=== PATIENT | female | born 1935 | race Caucasian/White ===

== ENCOUNTER 2021-12-19 11:56 | Observation (INO) | payer MEDICARE ==
[~2021-12-19] VITALS: Ht 142.2 cm; Wt 70.3 kg
[~2021-12-19 11:56] MED LIST: ASPIRIN EC81 MG PO; ATORVASTATIN CA20 MG PO; GLIPIZIDE5 MG PO; ISOSORBIDE MONO30 MG PO; LEVOTHYROXINE25 MCG PO; LOPRESSOR25 MG PO; METFORMIN HCL500 MG PO; PEPCID20 MG PO; PLAVIX75 MG PO; VITAMIN D250000 UNIT PO
[2021-12-19 13:03] LABS: BASOPHILS # (AUTO) 0.1 (0.0-0.1); BASOPHILS % 0.8 % (0.0-1.0); EOSINOPHILS # (AUTO) 0.6 (0.0-0.4); EOSINOPHILS % 6.4 % (0.0-6.0); HEMATOCRIT 45.4 % (34.2-44.1); HEMOGLOBIN 14.7 g/dL (12.0-16.0); LYMPHOCYTES # (AUTO) 3.1 (1.0-3.2); LYMPHOCYTES % 34.6 % (18.0-39.1); MEAN CORPUSCULAR HEMOGLOBIN 30.6 pg (28-32); MEAN CORPUSCULAR HGB CONC 32.4 g/dL (31-35); MEAN CORPUSCULAR VOLUME 94.4 fL (81-99); MONOCYTES % 11.2 % (4.4-11.3); NEUTROPHILS # (AUTO) 4.2 (2.1-6.9); NEUTROPHILS % 46.7 % (38.7-80.0); PLATELET COUNT 262 x10e3/uL (140-360); RED BLOOD COUNT 4.81 x10e6/uL (3.6-5.1); RED CELL DISTRIBUTION WIDTH 14.4 % (11.7-14.4)
[2021-12-19 13:22] LABS: INR 0.96; PROTHROMBIN TIME 13.7 seconds (11.9-14.5)
[2021-12-19 13:30] LABS: ALBUMIN 3.6 g/dL (3.5-5.0); ALBUMIN/GLOBULIN RATIO 1.1 (0.8-2.0); CALCIUM 9.3 mg/dL (8.4-10.2); CREATININE, SERUM 0.82 mg/dL (0.57-1.11)
[2021-12-19] MEDS ORDERED: ONDANSETRON HCL INJ 2MG/ML 2ML 2 MG/ML VIAL IV PRN (14:30)
[2021-12-19] MEDS ORDERED: ASPIRIN 81 MG CHEW TAB PO ONE (14:30)
[2021-12-19] MEDS ORDERED: SODIUM CHLORIDE FLUSH 10 ML SYR INJ PRN (14:30)
[2021-12-19 17:18] VITALS: BP 126/80
[2021-12-19 17:25] VITALS: BP 126/80
[2021-12-19 17:31] VITALS: BP 126/80
[2021-12-19] MEDS ORDERED: NITROGLYCERIN0.4 MG SL (17:41)
[2021-12-19 20:00] VITALS: BP 144/72
[2021-12-19 20:09] LABS: CREATINE KINASE 34 IU/L (29-168)
[2021-12-20] VITALS (9 sets, daily range): BP systolic 105–132; BP diastolic 57–83
[2021-12-20 07:39] LABS: CREATINE KINASE 38 IU/L (29-168)
[2021-12-20] MEDS ORDERED: DEXTROSE 50% SYRINGE 50 ML IV PRN (08:00)
[2021-12-20] MEDS ORDERED: NITROGLYCERIN 0.4 MG SUBL SL PRN (08:00)
[2021-12-20] MEDS: ISOSORBIDE MONONITRATE 30 MG TAB CR PO SCH (08:28)
[2021-12-20] MEDS: ASPIRIN 81 MG ENTERIC COATED PO SCH (08:29)
[2021-12-20] MEDS: CLOPIDOGREL BISULFATE 75 MG TAB PO SCH (08:29)
[2021-12-20] MEDS: INSULIN LISPRO 100 UNIT/1 ML 3ML VIAL SQ SCH ×4 (08:30→21:39)
[2021-12-20] MEDS: METOPROLOL TARTRATE 25 MG TAB PO SCH ×2 (08:30→21:00)
[2021-12-20] MEDS ORDERED: ASPIRIN 81 MG ENTERIC COATED PO SCH (09:00)
[2021-12-20 16:23] LABS: CREATINE KINASE 38 IU/L (29-168)
[2021-12-20] MEDS ORDERED: ATORVASTATIN 20 MG TAB PO SCH (21:00)
[2021-12-21] VITALS (7 sets, daily range): BP systolic 135–160; BP diastolic 65–88
[2021-12-21] MEDS ORDERED: LEVOTHYROXINE SODIUM 25 MCG TABLET PO SCH (06:00)
[2021-12-21] MEDS: INSULIN LISPRO 100 UNIT/1 ML 3ML VIAL SQ SCH ×3 (07:30→16:29)
[2021-12-21] MEDS: ASPIRIN 81 MG ENTERIC COATED PO SCH (08:28)
[2021-12-21] MEDS: METOPROLOL TARTRATE 25 MG TAB PO SCH (08:28)
[2021-12-21] MEDS: ISOSORBIDE MONONITRATE 30 MG TAB CR PO SCH (08:28)
[2021-12-21] MEDS: CLOPIDOGREL BISULFATE 75 MG TAB PO SCH (08:28)
[2021-12-21] MEDS ORDERED: REGADENOSON 0.4 MG/5 ML SYR IV ONE (09:14)
[2021-12-26] MEDS ORDERED: ERGOCALCIFEROL 50,000 UNIT CAP PO SCH (09:00)
== END 2021-12-21 17:47 | disposition home or self-care (01) ==
LOC: ER 12:27 → ERHOLD 14:23 → MED/SURG3 16:57
PROVIDERS: ADMIT Internal Medicine; ATTEND Internal Medicine
DX: I25.118 Atherosclerotic heart disease of native coronary artery with other forms of angina pectoris (principal); I10 Essential (primary) hypertension; E03.9 Hypothyroidism, unspecified; Z95.1 Presence of aortocoronary bypass graft; Z88.0 Allergy status to penicillin; Z88.8 Allergy status to other drugs, medicaments and biological substances; E11.69 Type 2 diabetes mellitus with other specified complication; E78.5 Hyperlipidemia, unspecified; Z95.5 Presence of coronary angioplasty implant and graft
CPT/HCPCS: 0223U; 36415 ×3; 71045; 71250; 78452; 80053; 82550 ×2; 82553 ×2; 82948 ×3; 84484 ×2; 85025; 85610; 93005; 93017; 96372; 99251; 99284; A9502; G0378 ×3; J2785

== ENCOUNTER 2022-05-23 12:57 | Observation (INO) | payer MEDICARE ==
[~2022-05-23] VITALS: Ht 142.2 cm; Wt 64.9 kg
[~2022-05-23 12:57] MED LIST changes: +NITROGLYCERIN0.4 MG SL
[2022-05-23] MEDS ORDERED: METHYLPREDNISOLONE SOD SUCC 125 MG/2ML VIAL IV STA (13:14)
[2022-05-23] MEDS ORDERED: SODIUM CHLORIDE 0.9% 1000ML 1,000 ML IV STA (13:14)
[2022-05-23] MEDS ORDERED: ONDANSETRON HCL INJ 2MG/ML 2ML 2 MG/ML VIAL IV PRN (13:15)
[2022-05-23] MEDS ORDERED: DIPHENHYDRAMINE HCL INJ 50 MG/ML VIAL IV ONE (13:15)
[2022-05-23 13:30] LABS: BASOPHILS # (AUTO) 0.1 (0.0-0.1); BASOPHILS % 0.8 % (0.0-1.0); EOSINOPHILS # (AUTO) 0.3 (0.0-0.4); EOSINOPHILS % 3.3 % (0.0-6.0); HEMATOCRIT 45.2 % (34.2-44.1); HEMOGLOBIN 14.9 g/dL (12.0-16.0); LYMPHOCYTES % 28.9 % (18.0-39.1); MEAN CORPUSCULAR HEMOGLOBIN 30.8 pg (28-32); MEAN CORPUSCULAR VOLUME 93.4 fL (81-99); MONOCYTES # (AUTO) 1.1 (0.2-0.8); MONOCYTES % 10.5 % (4.4-11.3); NEUTROPHILS # (AUTO) 5.8 (2.1-6.9); NEUTROPHILS % 55.8 % (38.7-80.0); PLATELET COUNT 288 x10e3/uL (140-360); RED BLOOD COUNT 4.84 x10e6/uL (3.6-5.1); RED CELL DISTRIBUTION WIDTH 14.8 % (11.7-14.4)
[2022-05-23 13:44] LABS: ALBUMIN 3.5 g/dL (3.5-5.0); ALBUMIN/GLOBULIN RATIO 1.1 (0.8-2.0); ANION GAP 16.2 mmol/L (8-16); CALCIUM 8.8 mg/dL (8.4-10.2); CREATININE, SERUM 1.36 mg/dL (0.57-1.11); POTASSIUM 4.2 mmol/L (3.5-5.1)
[2022-05-23] MEDS ORDERED: DIPHENHYDRAMINE HCL INJ 50 MG/ML VIAL ONE (13:54)
[2022-05-23 13:59] LABS: INR 1.07; PROTHROMBIN TIME 14.1 seconds (11.9-14.5)
[2022-05-23] MEDS ORDERED: SODIUM CHLORIDE 0.9% 100 ML ONE (14:04)
[2022-05-23] MEDS ORDERED: IOPAMIDOL 370 MG/ML 100 ML INFUS..BTL INJ ONE (14:04)
[2022-05-23] MEDS ORDERED: EPINEPHRINE HCL 1:1000 1ML 1 MG/ML AMP ONE (14:07)
[2022-05-23 15:05] LABS: CLARITY,URINE SL CLOUDY (CLEAR); COLOR,URINE AMBER (YELLOW); KETONES,URINE NEGATIVE (NEGATIVE); LEUKOCYTE ESTERASE ,URINE NEGATIVE (NEGATIVE); NITRITE,URINE NEGATIVE (NEGATIVE); PROTEIN,URINE DIPSTICK 1+ (NEGATIVE); URINE UROBILINOGEN 0.2 mg/dL (0.2 - 1)
[2022-05-23 15:15] LABS: AMORPHOUS SEDIMENT,URINE MODERATE (FEW); BACTERIA,URINE FEW /HPF; EPITHELIAL CELLS,URINE RARE /LPF; WBC,URINE (MAN) 0-5 /HPF (0-5)
[2022-05-23 15:19] LABS: FREE THYROXINE INDEX 2.3141 (1.4-3.8); THYROID STIMULATING HORMONE 5.987 uIU/mL (0.350-4.940)
[2022-05-23 20:13] VITALS: BP 111/64
[2022-05-23 20:19] VITALS: BP 111/64
[2022-05-23] MEDS ORDERED: METOPROLOL TART50 MG PO (20:33)
[2022-05-23 20:37] VITALS: BP 111/64
[2022-05-24] VITALS: BP 113/56
[2022-05-24 04:42] LABS: BASOPHILS % 0.2 % (0.0-1.0); EOSINOPHILS % 0.1 % (0.0-6.0); HEMATOCRIT 41.9 % (34.2-44.1); HEMOGLOBIN 13.9 g/dL (12.0-16.0); LYMPHOCYTES # (AUTO) 1.9 (1.0-3.2); LYMPHOCYTES % 18.3 % (18.0-39.1); MEAN CORPUSCULAR HEMOGLOBIN 30.9 pg (28-32); MEAN CORPUSCULAR HGB CONC 33.2 g/dL (31-35); MEAN CORPUSCULAR VOLUME 93.1 fL (81-99); MONOCYTES # (AUTO) 0.7 (0.2-0.8); MONOCYTES % 6.7 % (4.4-11.3); NEUTROPHILS # (AUTO) 7.7 (2.1-6.9); NEUTROPHILS % 74.3 % (38.7-80.0); PLATELET COUNT 230 x10e3/uL (140-360)
[2022-05-24 05:03] LABS: ANION GAP 16.2 mmol/L (8-16); CALCIUM 8.7 mg/dL (8.4-10.2); CREATININE, SERUM 1.12 mg/dL (0.57-1.11); POTASSIUM 4.2 mmol/L (3.5-5.1)
[2022-05-24 06:04] VITALS: BP 119/77
[2022-05-24 06:05] VITALS: BP 129/114
[2022-05-24 08:00] VITALS: BP 136/69
== END 2022-05-24 09:08 | disposition home or self-care (01) ==
LOC: ER 12:59 → ERHOLD 15:20 → MED/SURG 20:03
PROVIDERS: ADMIT Internal Medicine; ATTEND Internal Medicine
DX: R55 Syncope and collapse (principal); I95.9 Hypotension, unspecified; I25.810 Atherosclerosis of coronary artery bypass graft(s) without angina pectoris; I25.2 Old myocardial infarction; I10 Essential (primary) hypertension; E78.00 Pure hypercholesterolemia, unspecified; E11.9 Type 2 diabetes mellitus without complications; Z88.0 Allergy status to penicillin; Z91.041 Radiographic dye allergy status; Z20.822 Contact with and (suspected) exposure to COVID-19; Z79.02 Long term (current) use of antithrombotics/antiplatelets; Z79.82 Long term (current) use of aspirin; Z79.899 Other long term (current) drug therapy; Z95.5 Presence of coronary angioplasty implant and graft; Z95.1 Presence of aortocoronary bypass graft; Z82.49 Family history of ischemic heart disease and other diseases of the circulatory system
CPT/HCPCS: 0223U; 36415 ×2; 75635; 80048; 80053; 81001; 82948; 83690; 83880; 84436; 84443; 84479; 84484; 85025 ×2; 85610; 93005; 93306; 94799; 99284; G0378 ×2; J0171; J1200; J2405; J2930; J7030; J7050; Q9967